=== PATIENT | male | born 1965 | race African-American/Black ===

== ENCOUNTER 2019-04-03 02:16 | Emergency (ER) | payer OTHER ==
[~2019-04-03] VITALS: Ht 177.8 cm; Wt 142.9 kg
[2019-04-03 02:35] VITALS: BP 173/85
--- NOTE | 2019-04-03 02:35 | NUR ---
ED Nurse Note: Pt ambulated to ED from home c/o 10/10 pain from a boil in between his buttocks [id number]. Pt VSS
[2019-04-03] MEDS ORDERED: BACTRIM DS TAB1 EAC1 ORAL (03:06)
[2019-04-03] MEDS ORDERED: IBUPROFEN600 MG ORAL (03:06)
--- NOTE | 2019-04-03 03:07 | Emergency Room Report ---
History of Present Illness General Chief Complaint: Skin Rash/Abscess Source: Patient Present Illness HPI This is a 53-year-old male with a history of abscesses in the past. He presents with an abscess to his left buttock area. Is been there for less than a week and it was draining 2 days ago. Still draining and painful so he came in. No fever chills but no nausea no vomiting. No trauma. No other complaint. Allergies: Coded Allergies: No Known Allergies (Unverified , 04/03/19) Patient History Past Medical History: see triage record, old chart reviewed, HTN Past Surgical History: none Pertinent Family History: none Social History: Denies: smoking Immunizations: other Reviewed Nursing Documentation: PMH: Agreed; PSxH: Agreed Nursing Documentation-PMH Past Medical History: No History, Except For Hx Hypertension: Yes Hx Diabetes: Yes Review of Systems Eye: Denies: eye pain, blurred vision ENT: Denies: ear pain, nose congestion, throat swelling Respiratory: Denies: cough, shortness of breath Cardiovascular: Denies: chest pain, palpitations Gastrointestinal: Denies: abdominal pain, diarrhea, nausea, vomiting Musculoskeletal: Denies: back pain, joint pain Skin: Reports: lesions; Denies: rash Neurological: Denies: headache, numbness Endocrine: Denies: increased thirst, increased urine Hematologic/Lymphatic: Denies: easy bruising All Other Systems: negative except mentioned in HPI Physical Exam Vital Signs Date Time Temp Pulse Resp B/P (MAP) Pulse Ox O2 Delivery O2 Flow Rate FiO2 04/03/19 02:27 99.7 102 16 173/85 (114) 95 Room Air Vitals with high blood pressure Sp02 EP Interpretation: reviewed, normal General Appearance: well appearing, no apparent distress, alert, obese Head: normocephalic, atraumatic Eyes: bilateral eye PERRL, bilateral eye EOMI ENT: hearing grossly normal, normal pharynx Neck: full range of motion, supple, no meningismus Respiratory: chest non-tender, lungs clear, normal breath sounds Cardiovascular #1: regular rate, rhythm, no murmur Gastrointestinal: normal bowel sounds, non tender, no mass, no organomegaly, no bruit, non-distended Rectal: other - left Buttock: There is an indurated area about 4 cm with necrotic center of about 1 cm. Small amount of purulent discharge. Musculoskeletal: back normal, gait/station normal, normal range of motion Psychiatric: mood/affect normal Procedures Incision and Drainage Incision and Drainage : Consent: Verbal Site: Left buttock Blade Size: 11 I & D Procedure: betadine prep Wound Location: other - Buttock Anesthesia: 1% Lidocaine Volume Anesthetic (ccs): 8 Patient Tolerated: Well Complications: None Progress Area cleaned with Betadine. Local anesthetic with 1% lidocaine without epinephrine. I remove the necrotic center. There was small amount of purulent discharge. Loculated area broken up. Wound irrigated. Patient tolerated procedure without any problem. Medical Decision Making Diagnostic Impression: Primary Impression: Abscess ER Course Patient with left buttock abscess. He has previous abscess. This most likely MRSA. Patient given a dose of Bactrim here. Will discharge home. Last Vital Signs Date Time Temp Pulse Resp B/P (MAP) Pulse Ox O2 Delivery O2 Flow Rate FiO2 04/03/19 02:27 99.7 102 16 173/85 (114) 95 Room Air Status: improved Disposition: HOME, SELF-CARE Condition: Stable Scripts Ibuprofen* (MOTRIN*) 600 Mg Tablet 600 MG ORAL THREE TIMES A DAY, #30 TAB 0 Refills Prov: Ihsan Hammond MD 04/03/19 Trimethoprim/Sulfamethoxazole 160/800* (BACTRIM DS TABLET*) 1 Each Tablet 1 TAB ORAL Q12H, #14 TAB 0 Refills Prov: Ihsan Hammond MD 04/03/19 Patient Instructions: Abscess Additional Instructions: Follow-up with your doctor in 3 to 5 days for recheck. Return if worse. Ihsan Hammond MD Apr 03, 2019 03:06
[2019-04-03] MEDS ORDERED: Bactrim-DS 1 tab ORAL ONE (03:15)
[2019-04-03 03:20] VITALS: BP 173/85
--- NOTE | 2019-04-03 03:20 | NUR ---
ER DISCHARGE NOTE: Patient is cleared to be discharged per ERMD, pt is aox4, on room air, with stable vital signs. pt was given dc and prescription instructions, pt was able to verbalize understanding, pt id band removed. pt is able to ambulate with steady gait. pt took all belongings.
== END 2019-04-03 03:20 | disposition home or self-care (01) ==
LOC: EMR 03:04
DX: L02.31 Cutaneous abscess of buttock (principal); E11.9 Type 2 diabetes mellitus without complications; I10 Essential (primary) hypertension
CPT/HCPCS: 10060; 99282